=== PATIENT | female | born 1995 | race Caucasian/White ===

== ENCOUNTER 2023-08-26 07:46 | Inpatient (IN) | payer OTHER ==
[2023-08-26] MEDS ORDERED: IBUPROFEN 600 MG TABLET (FP) PO PRN (08:14)
[2023-08-26] MEDS ORDERED: ACETAMINOPHEN 325 MG TABLET (FP) PO PRN (08:14)
[2023-08-26] MEDS ORDERED: morphine SULFATE/PF 1 MG/2 ML (2cc Syringe - QUVA) EP ONE (08:14)
[2023-08-26] MEDS ORDERED: ONDANSETRON 4 MG/2 ML VIAL IVPUSH PRN (08:14)
[2023-08-26] MEDS ORDERED: CITRIC ACID/SODIUM CITRATE 30 ML UNIT-DOSE CUP PO ONE (08:30)
[2023-08-26] MEDS ORDERED: ELECTROLYTE-148 SOLN 500 ML IV SCH (08:30)
[2023-08-26] MEDS ORDERED: ELECTROLYTE-148 SOLN 1,000 ML IV SCH (09:00)
[2023-08-26 09:08] VITALS: BMI 41.3
[2023-08-26 09:26] LABS: ACTIVATED PTT 24.6 SECONDS (25.2-36.5); INR 0.92 (0.83-1.09); PROTHROMBIN TIME (PATIENT) 10.7 SEC (9.7-13.0)
[2023-08-26 09:47] LABS: POTASSIUM 4.1 mmol/L (3.5-5.1)
[2023-08-26 09:48] LABS: CALCIUM 8.6 mg/dL (8.5-10.1)
[2023-08-26 09:49] LABS: BLOOD UREA NITROGEN 5.7 mg/dL (7-18)
[2023-08-26 09:52] LABS: CREATININE 0.5 mg/dL (0.55-1.3)
[2023-08-26] MEDS ORDERED: LIGASURE IMPACT TP ONE (09:56)
[2023-08-26] MEDS ORDERED: morphine SULFATE/PF 1 MG/2 ML (2cc Syringe - QUVA) ONE (10:04)
[2023-08-26] MEDS ORDERED: SODIUM CHLORIDE 0.9% P/F 10 ML VIAL IJ ONE (10:05)
[2023-08-26] MEDS ORDERED: ceFAZolin SODIUM 1 GM VIAL ONE (10:05)
[2023-08-26 10:15] LABS: BASO % 0.3 % (0-2.0); HEMATOCRIT 34.1 % (32.4-45.2); LYMPH % 22.7 % (8-40); MCH 22.2 pg (25.7-33.7); MCHC 32.2 g/dl (32.0-36.0); MEAN CELL VOLUME 69.1 fl (80-96); MEAN PLT VOLUME 9.5 fl (7.5-11.1); MONO % 6.7 % (3.8-10.2); NEUT % 69.3 % (42.8-82.8); PLATELET COUNT 282 10^3/uL (134-434); RBC 4.94 M/mm3 (3.60-5.2); RDW 16.9 % (11.6-15.6); WHITE BLOOD COUNT 8.7 K/mm3 (4.0-10.0)
[2023-08-26] MEDS ORDERED: PHENYLEPHRINE HCL 10 MG/1 ML SINGLE DOSE VIAL ONE (10:32)
[2023-08-26] MEDS ORDERED: OXYTOCIN 10 UNITS/ML VIAL ONE ×2 (10:56)
[2023-08-26 11:28] LABS: CORD BASE EXCESS -3.5 mmol/L (0-2); CORD HCO3 23.2 mmHg (20-29); CORD pH 7.303 (7.14-7.44)
[2023-08-26 11:30] LABS: CORD BASE EXCESS -2.1 mmol/L (0-2); CORD HCO3 22.9 mmHg (20-29); CORD PCO2 40.2 mmHg (30-78); CORD pH 7.374 (7.14-7.44)
[2023-08-26] MEDS ORDERED: ONDANSETRON 4 MG/2 ML VIAL ONE (11:31)
[2023-08-26] MEDS ORDERED: MIDAZOLAM HCL 2 MG/2 ML SINGLE DOSE VIAL ONE (11:33)
[2023-08-26] MEDS ORDERED: FENTANYL CITRATE/PF 50 MCG/ML VIAL ONE (11:54)
[2023-08-26] MEDS ORDERED: KETOROLAC TROMETHAMINE 30 MG/1 ML VIAL ONE (12:23)
[2023-08-26] MEDS: OXYTOCIN 20 UNITS in 0.9% NS 20 UNIT/1,000 ML INFUS.BAG IV SCH ×2 (12:35→21:21)
[2023-08-26] MEDS ORDERED: OXYTOCIN 20 UNITS in 0.9% NS 20 UNIT/1,000 ML INFUS.BAG IV ONE (12:39)
[2023-08-26] MEDS ORDERED: oxyCODONE HCL 5 MG TABLET PO PRN (12:49)
[2023-08-26] MEDS ORDERED: ONDANSETRON 4 MG/2 ML VIAL IVPB PRN (12:49)
[2023-08-26] MEDS ORDERED: IBUPROFEN 800 MG/8 ML IJ IVPB PRN (12:49)
[2023-08-26 12:57] LABS: HIV INTERPRETATION NEGATIVE (NEGATIVE)
[2023-08-26] MEDS: ACETAMINOPHEN 1000 MG/100 ML BAG IVPB PRN (17:07)
[2023-08-26] MEDS: SENNOSIDES/DOCUSATE COMBO (SENNA PLUS) TABLET (UD) PO SCH (22:00)
[2023-08-27] MEDS: ACETAMINOPHEN 1000 MG/100 ML BAG IVPB PRN (00:18)
[2023-08-27 08:00] LABS: BASO % 0.3 % (0-2.0); EOS % 0.4 % (0-4.5); HEMATOCRIT 29.1 % (32.4-45.2); HEMOGLOBIN 9.2 GM/dL (10.7-15.3); LYMPH % 15.7 % (8-40); MCH 22.3 pg (25.7-33.7); MCHC 31.7 g/dl (32.0-36.0); MEAN CELL VOLUME 70.3 fl (80-96); MEAN PLT VOLUME 9.2 fl (7.5-11.1); NEUT % 76.6 % (42.8-82.8); PLATELET COUNT 240 10^3/uL (134-434); RBC 4.15 M/mm3 (3.60-5.2); WHITE BLOOD COUNT 8.6 K/mm3 (4.0-10.0)
[2023-08-27 09:20] VITALS: RESP 18
[2023-08-27] MEDS: ENOXAPARIN NA (PORCINE) 40 MG/0.4 ML DISP.SYRIN SQ SCH (09:36)
[2023-08-27] MEDS ORDERED: FLU VACCINE (FLULAVAL) PF 60 MCG/0.5 ML SYRINGE 2023-2024 IM ONE (10:00)
[2023-08-27] MEDS ORDERED: BISACODYL 10 MG SUPP.RECT RC PRN (12:50)
[2023-08-27] MEDS: SIMETHICONE 80 MG TAB.CHEW (FP) PO PRN ×2 (13:03→21:03)
[2023-08-27] MEDS ORDERED: ACETAMINOPHEN 325 MG TABLET (FP) PO PRN (18:00)
[2023-08-27] MEDS: FERROUS SO4 325 MG TABLET (FP) PO SCH (21:03)
[2023-08-27] MEDS: SENNOSIDES/DOCUSATE COMBO (SENNA PLUS) TABLET (UD) PO SCH (21:03)
[2023-08-27] MEDS: IBUPROFEN 600 MG TABLET (FP) PO PRN (21:03)
[2023-08-28] MEDS: IBUPROFEN 600 MG TABLET (FP) PO PRN ×2 (05:06→15:23)
[2023-08-28] MEDS: SIMETHICONE 80 MG TAB.CHEW (FP) PO PRN (05:06)
[2023-08-28 09:13] VITALS: BP 101/66; PULSE 78; TEMP 98.3
[2023-08-28] MEDS: ENOXAPARIN NA (PORCINE) 40 MG/0.4 ML DISP.SYRIN SQ SCH (10:05)
[2023-08-28] MEDS: FERROUS SO4 325 MG TABLET (FP) PO SCH (10:05)
== END 2023-08-28 16:30 | disposition home or self-care (01) | DRG 540 ==
LOC: JLDR 07:46 → J3W 14:20
PROVIDERS: ADMIT Family Medicine; ATTEND Family Medicine
PROC: 0UT70ZZ Resection of Bilateral Fallopian Tubes, Open Approach (ICD-10-PCS; principal; 2023-08-26)
PROC: 10D00Z1 Extraction of Products of Conception, Low, Open Approach (ICD-10-PCS; 2023-08-26)
DX: O32.2XX0 Maternal care for transverse and oblique lie, not applicable or unspecified (principal); O36.63X0 Maternal care for excessive fetal growth, third trimester, not applicable or unspecified; Z3A.39 39 weeks gestation of pregnancy; Z37.0 Single live birth
CPT/HCPCS: 36415; 36600; 80048; 82803; 82962; 85025; 85610; 85730; 86780; 86850; 86900; 86901; 87389; 88305-TC; 88307-TC; 90686; 94010; G0008